=== PATIENT | male | born 1985 | race Hispanic/Latino ===

== ENCOUNTER 2020-12-19 20:23 | Emergency (ER) | payer OTHER ==
[~2020-12-19] VITALS: Ht 167.6 cm; Wt 99.8 kg
[2020-12-19 20:26] VITALS: BP 158/86
[2020-12-20 01:23] VITALS: BP 152/82
[2020-12-20 03:08] VITALS: BP 135/68
[2020-12-20 03:14] LABS: CREATININE 0.9 mg/dL (0.5-1.5); POTASSIUM 3.7 mmol/L (3.5-5.1)
[2020-12-20 03:18] LABS: ALBUMIN 4.7 g/dL (3.5-5.0); BILIRUBIN,TOTAL 0.7 mg/dL (0.2-1.0); CRP QUANTITATIVE 2.6 mg/L (0.00-9.0); MAGNESIUM 2.1 mg/dL (1.80-2.40); TOTAL PROTEIN, SERUM 8.7 g/dL (6.0-8.3)
[2020-12-20 04:05] LABS: INR 1.05 (0.85-1.15); PROTHROMBIN TIME 11.4 SEC (9.6-11.6)
[2020-12-20 04:06] LABS: PARTIAL THROMBOPLASTIN TIME 24.8 SEC (26.3-35.5)
[2020-12-20 04:18] VITALS: BP 131/64
[2020-12-20 05:15] LABS: BASOPHILS % (AUTO) 0.4 % (0.0-5.0); EOSINOPHILS % (AUTO) 1.4 % (0.0-8.0); HEMATOCRIT 50.3 % (42-54); LYMPHOCYTES % (AUTO) 21.1 % (21.0-51.0); MEAN CORPUSCULAR HEMOGLOBIN 30.4 pg (27.0-33.0); MEAN CORPUSCULAR VOLUME 89.3 fL (79-99); MONOCYTES % (AUTO) 8.7 % (3.0-13.0); PLATELET COUNT (AUTO) 326 K/uL (130-400); RED BLOOD CELL COUNT(AUTO) 5.63 MIL/uL (4.50-6.20); RED CELL DISTRIBUTION WIDTH 12.7 % (11.0-15.5); WHITE BLOOD COUNT (AUTO) 7.7 K/uL (4.8-10.8)
[2020-12-20 05:20] VITALS: BP 138/72
[2020-12-20] MEDS ORDERED: IPRA4AER IH (05:35)
[2020-12-20] MEDS ORDERED: MONT10TA21 PO (05:35)
[2020-12-20] MEDS ORDERED: ONDA4TAB4 PO (05:36)
== END 2020-12-20 05:47 | disposition home or self-care (01) ==
LOC: EDH 20:23
DX: J06.9 Acute upper respiratory infection, unspecified (principal); Z20.822 Contact with and (suspected) exposure to COVID-19; F17.200 Nicotine dependence, unspecified, uncomplicated
CPT/HCPCS: 36415; 71045; 80053; 83605; 83690; 83735; 84484; 85025; 85610; 85730; 86140; 87635; 87804 ×2; 93005; 99285; C9803

== ENCOUNTER 2020-12-20 14:49 | Emergency (ER) | payer SELFPAY ==
[~2020-12-20] VITALS: Ht 172.7 cm; Wt 99.8 kg
[~2020-12-20 14:49] MED LIST: IPRA4AER IH; MONT10TA21 PO; ONDA4TAB4 PO
[2020-12-20 14:51] VITALS: BP 149/85
== END 2020-12-20 15:47 | disposition home or self-care (01) ==
LOC: EDH 14:49
DX: R07.89 Other chest pain (principal); R42 Dizziness and giddiness; J02.9 Acute pharyngitis, unspecified; Z20.822 Contact with and (suspected) exposure to COVID-19; F17.200 Nicotine dependence, unspecified, uncomplicated; Z79.899 Other long term (current) drug therapy
CPT/HCPCS: 99281

== ENCOUNTER 2021-10-21 19:02 | Emergency (ER) | payer OTHER ==
[~2021-10-21] VITALS: Ht 172.7 cm; Wt 81.6 kg
[2021-10-21 19:10] VITALS: BP 132/73
[2021-10-21] MEDS ORDERED: PANT40TA PO (20:41)
[2021-10-21] MEDS ORDERED: FAMO-136 PO (20:41)
== END 2021-10-21 21:03 | disposition home or self-care (01) ==
LOC: EDH 19:02
DX: K21.9 Gastro-esophageal reflux disease without esophagitis (principal); Z20.822 Contact with and (suspected) exposure to COVID-19
CPT/HCPCS: 87635; 87804 ×2; 99283; C9803